=== PATIENT | female | born 1980 | race Caucasian/White ===

== ENCOUNTER 2020-11-16 06:54 | Emergency (ER) | payer MEDICAID ==
[2020-11-16] MEDS: Sodium Chloride 0.9% 10 ML Syringe FLUSH PRN (07:40)
[2020-11-16] MEDS: Sodium Chloride 0.9% 1,000 ML IV SCH (07:40)
[2020-11-16] MEDS: Ondansetron 4 MG/2 ML SDV IVPUSH STA (08:00)
[2020-11-16] MEDS: Cyclobenzaprine 10 MG Tab PO STA (08:15)
[2020-11-16] MEDS: Ketorolac 30 MG/ML SDV IVPUSH ONE (08:15)
[2020-11-16] MEDS: Morphine 2 MG/ML SYRINGE IVPUSH ONE (08:20)
--- NOTE | 2020-11-16 10:13 | CR ---
CHEST ONE VIEW INDICATION: Cough, fatigue, shortness of breath for two weeks. 30-year pack history of smoking. FINDINGS: AP portable upright view of the chest was obtained 11/16/20 - no comparisons. The heart and mediastinum are unremarkable. A minimal dextroconvex scoliosis of the upper and middle thoracic spine is noted. No consolidating pneumonia or effusion was identified. Evidence of exogenous obesity is noted. IMPRESSION: No acute process. Findings as noted above. MTDD
--- NOTE | 2020-11-16 10:36 | EDM.PDOC ---
ED HPI GENERAL MEDICAL PROBLEM - General Chief Complaint: General Stated Complaint: JOINT PAIN Time Seen by Provider: 11/16/20 07:20 Source of Information: Reports: Patient History Limitations: Reports: No Limitations - History of Present Illness INITIAL COMMENTS - FREE TEXT/NARRATIVE: Patient presented to the ED because of multiple complains. She has low back and shoulder pain for months but didn't see her doctor. The pain is shrap,7/10, wporse with movements. No recent trauma or injury . She took OTC tylenol and ibuprofen without relief. She also c/o N/V/D for 2 weeks. She was seen at [facility] 2 times and all they found was hypokalemia which was treated. There is fever, chills,.No cough or cold symptoms. No urinary s/s. - Related Data Allergies Allergy/AdvReac Type Severity Reaction Status Date / Time azithromycin Allergy Cannot Verified 11/16/20 07:13 Remember lisinopril Allergy Cannot Verified 11/16/20 07:13 Remember Home Meds: Home Meds Cyclobenzaprine [Flexeril] 10 mg PO TID PRN #30 tab 11/16/20 [Rx] Ibuprofen 800 mg PO TID PRN #30 tablet 11/16/20 [Rx] Ondansetron [Zofran ODT] 4 mg PO Q6H PRN #10 tab.dis 11/16/20 [Rx] Sulfamethoxazole/Trimethoprim [Bactrim Ds Tablet] 1 each PO BID #10 tablet 11/16/20 [Rx] Past Medical History Cardiovascular History: Reports: Hypertension Respiratory History: Reports: Other (See Below) Other Respiratory History: collapsed right lung. Psychiatric History: Reports: Anxiety - Past Surgical History HEENT Surgical History: Reports: Tonsillectomy GI Surgical History: Reports: Cholecystectomy Social & Family History - Family History Family Medical History: No Pertinent Family History - Tobacco Use Tobacco Use Status *Q: Current Every Day Tobacco User Years of Tobacco use: 20 Packs/Tins Daily: 1 - Caffeine Use Caffeine Use: Reports: Coffee ED ROS GENERAL - Review of Systems Review Of Systems: See Below Constitutional: Reports: No Symptoms HEENT: Reports: No Symptoms Respiratory: Reports: No Symptoms Cardiovascular: Reports: No Symptoms Endocrine: Reports: No Symptoms GI/Abdominal: Reports: Diarrhea, Nausea, Vomiting : Reports: No Symptoms Musculoskeletal: Reports: Neck Pain, Shoulder Pain, Back Pain Skin: Reports: No Symptoms Neurological: Reports: No Symptoms Psychiatric: Reports: Anxiety Hematologic/Lymphatic: Reports: No Symptoms ED EXAM, GENERAL - Physical Exam Exam: See Below Exam Limited By: No Limitations General Appearance: Alert, No Apparent Distress Eye Exam: Bilateral Eye: PERRL Ears: Normal External Exam, Normal Canal, Hearing Grossly Normal Nose: Normal Inspection, Normal Mucosa, No Blood Throat/Mouth: Normal Inspection, Normal Lips, Normal Teeth, Normal Oropharynx, Normal Voice Head: Atraumatic, Normocephalic Neck: Normal Inspection, Supple, Non-Tender, Full Range of Motion Respiratory/Chest: No Respiratory Distress, Lungs Clear, Normal Breath Sounds Cardiovascular: Normal Peripheral Pulses, Regular Rate, Rhythm, No Edema, No Gallop, No JVD, No Murmur, No Rub GI/Abdominal: Normal Bowel Sounds (bowel sound), Soft, Non-Tender, Other Back Exam: Normal Inspection, Full Range of Motion Extremities: Normal Inspection, Normal Range of Motion, Non-Tender Neurological: Alert, Oriented, CN II-XII Intact, Normal Cognition Course - Vital Signs Text/Narrative:: Lab/CXR result was reviewed and discussed with patient NS 1 L bolus Zofran 4 mg IV x1 Toradol 30 mg IV x1 Morphine 2 mg IV x1 Flexeril 10 mg PO x1 GI cocktail PO x1 Last Recorded V/S: Last Vital Signs Temp 36.2 C 11/16/20 07:17 Pulse 105 H 11/16/20 07:17 Resp 18 11/16/20 07:17 BP 143/94 H 11/16/20 07:17 Pulse Ox 100 11/16/20 07:17 - Orders/Labs/Meds Orders: Active Orders 24 hr Category Date Time Status OVA + PARASITE EXAM Stat Lab 11/16/20 08:14 Ordered STOOL CULTURE Stat Lab 11/16/20 08:14 Ordered Isolation [COMM] Routine Oth 11/16/20 07:17 Ordered Saline Lock Insert [OM.PC] Routine Oth 11/16/20 07:13 Ordered Labs: Laboratory Tests 11/16/20 11/16/20 11/16/20 Range/Units 07:45 07:45 07:45 WBC 8.1 (3.0-10.3) x10-3/uL RBC 4.84 (3.60-5.20) x10(6)uL Hgb 14.4 (11.4-15.5) g/dL Hct 43.6 (34.2-48.2) % MCV 90.1 (76.7-100.5) fL MCH 29.7 (23.9-33.9) pg MCHC 32.9 (31.9-34.8) g/dL RDW 12.8 (12.3-16.5) % Plt Count 282 (151-488) x10(3)uL MPV 8.3 (7.1-12.4) fL Neut % (Auto) 57.3 (30.8-76.2) % Lymph % (Auto) 30.5 (18.4-52.1) % [place] % (Auto) 7.0 (4.4-15.7) % Eos % (Auto) 4.3 (0.6-8.1) % Baso % (Auto) 0.9 (0.2-1.5) % Neut # (Auto) 4.6 (1.5-6.3) x10-3/uL Lymph # (Auto) 2.5 (1.0-4.4) x10-3/uL [place] # (Auto) 0.6 (0.3-1.0) x10-3/uL Eos # (Auto) 0.3 (0.0-0.8) x10-3/uL Baso # (Auto) 0.1 (0.0-0.1) x10-3/uL Sodium 143 (135-145) mmol/L Potassium 4.0 (3.5-5.3) mmol/L Chloride 103 (100-110) mmol/L Carbon Dioxide 31 (21-32) mmol/L BUN 17 (7-18) mg/dL Creatinine 0.9 (0.55-1.02) mg/dL Est Cr Clr Drug Dosing 74.02 mL/min Estimated GFR (MDRD) > 60 (>60) BUN/Creatinine Ratio 18.9 (9-20) Glucose 93 (80-116) mg/dL Calcium 9.4 (8.6-10.2) mg/dL Magnesium (1.8-2.5) mg/dL Total Bilirubin 0.4 (0.1-1.3) mg/dL AST 27 H (5-25) IU/L ALT 38 H (12-36) U/L Alkaline Phosphatase 70 (56-112) IU/L C-Reactive Protein (0.5-0.9) mg/dL Total Protein 7.8 (6.0-8.0) g/dL Albumin 4.0 (3.5-5.2) g/dL Globulin 3.8 g/dL Albumin/Globulin Ratio 1.1 Urine Color (YELLOW) Urine Appearance (CLEAR) Urine pH (5.0-6.5) Ur Specific [place] (1.010-1.025) Urine Protein (NEGATIVE) mg/dL Urine Glucose (UA) (NORMAL) mg/dL Urine Ketones (NEGATIVE) mg/dL Urine Occult Blood (NEGATIVE) Urine Nitrite (NEGATIVE) Urine Bilirubin (NEGATIVE) Urine Urobilinogen (NEGATIVE) mg/dL Ur Leukocyte Esterase (NEGATIVE) Urine RBC (0-5) Urine WBC (0-5) Ur Squamous Epith Cells (NS,R,O) Urine Bacteria (NS) SARS-CoV-2 RNA (MAGUI) Negative (NEGATIVE) 11/16/20 11/16/20 11/16/20 Range/Units 07:45 07:45 08:20 WBC (3.0-10.3) x10-3/uL RBC (3.60-5.20) x10(6)uL Hgb (11.4-15.5) g/dL Hct (34.2-48.2) % MCV (76.7-100.5) fL MCH (23.9-33.9) pg MCHC (31.9-34.8) g/dL RDW (12.3-16.5) % Plt Count (151-488) x10(3)uL MPV (7.1-12.4) fL Neut % (Auto) (30.8-76.2) % Lymph % (Auto) (18.4-52.1) % [place] % (Auto) (4.4-15.7) % Eos % (Auto) (0.6-8.1) % Baso % (Auto) (0.2-1.5) % Neut # (Auto) (1.5-6.3) x10-3/uL Lymph # (Auto) (1.0-4.4) x10-3/uL [place] # (Auto) (0.3-1.0) x10-3/uL Eos # (Auto) (0.0-0.8) x10-3/uL Baso # (Auto) (0.0-0.1) x10-3/uL Sodium (135-145) mmol/L Potassium (3.5-5.3) mmol/L Chloride (100-110) mmol/L Carbon Dioxide (21-32) mmol/L BUN (7-18) mg/dL Creatinine (0.55-1.02) mg/dL Est Cr Clr Drug Dosing mL/min Estimated GFR (MDRD) (>60) BUN/Creatinine Ratio (9-20) Glucose (80-116) mg/dL Calcium (8.6-10.2) mg/dL Magnesium 2.0 (1.8-2.5) mg/dL Total Bilirubin (0.1-1.3) mg/dL AST (5-25) IU/L ALT (12-36) U/L Alkaline Phosphatase (56-112) IU/L C-Reactive Protein 1.7 H (0.5-0.9) mg/dL Total Protein (6.0-8.0) g/dL Albumin (3.5-5.2) g/dL Globulin g/dL Albumin/Globulin Ratio Urine Color Yellow (YELLOW) Urine Appearance Slightly cloudy (CLEAR) Urine pH 7.0 H (5.0-6.5) Ur Specific [place] 1.015 (1.010-1.025) Urine Protein Negative (NEGATIVE) mg/dL Urine Glucose (UA) Normal (NORMAL) mg/dL Urine Ketones Negative (NEGATIVE) mg/dL Urine Occult Blood Negative (NEGATIVE) Urine Nitrite Positive H (NEGATIVE) Urine Bilirubin Negative (NEGATIVE) Urine Urobilinogen Normal (NEGATIVE) mg/dL Ur Leukocyte Esterase Negative (NEGATIVE) Urine RBC 0-5 (0-5) Urine WBC 0-5 (0-5) Ur Squamous Epith Cells Moderate H (NS,R,O) Urine Bacteria Many H (NS) SARS-CoV-2 RNA (MAGUI) (NEGATIVE) Meds: Medications Discontinued Medications Generic Name Dose Route Start Last Admin Trade Name Freq PRN Reason Stop Dose Admin Al Hydroxide/Mg Hydroxide 15 0 ml 11/16/20 10:49 11/16/20 10:53 ml/ Lidocaine HCl 15 ml PO 11/16/20 10:50 30 ml ONETIME ONE Administration Cyclobenzaprine HCl 10 mg 11/16/20 07:23 11/16/20 08:15 Cyclobenzaprine 10 Mg Tab PO 11/16/20 07:24 10 mg NOW STA Administration Sodium Chloride 1,000 mls @ 999 mls/hr 11/16/20 07:30 11/16/20 07:40 Normal Saline IV 999 mls/hr ASDIRECTED SOPHIA Administration Ketorolac Tromethamine 30 mg 11/16/20 07:19 11/16/20 08:15 Ketorolac 30 Mg/Ml Sdv IVPUSH 11/16/20 07:20 30 mg ONETIME ONE Administration Morphine Sulfate 2 mg 11/16/20 07:19 11/16/20 08:20 Morphine 2 Mg/Ml Syringe IVPUSH 11/16/20 07:20 2 mg ONETIME ONE Administration Ondansetron HCl 4 mg 11/16/20 07:30 11/16/20 08:00 Ondansetron 4 Mg/2 Ml Sdv IVPUSH 11/16/20 07:31 4 mg NOW STA Administration Sodium Chloride 10 ml 11/16/20 07:13 11/16/20 07:40 Sodium Chloride 0.9% 10 Ml Syringe FLUSH 10 ml ASDIRECTED PRN Administration Keep Vein Open Departure - Departure Time of Disposition: 10:35 Disposition: Home, Self-Care 01 Condition: Good Clinical Impression: UTI (urinary tract infection) - Discharge Information Prescriptions: Sulfamethoxazole/Trimethoprim [Bactrim Ds Tablet] 1 each PO BID #10 tablet Cyclobenzaprine [Flexeril] 10 mg PO TID PRN #30 tab PRN Reason: Spasms Ibuprofen 800 mg PO TID PRN #30 tablet PRN Reason: Pain Ondansetron [Zofran ODT] 4 mg PO Q6H PRN #10 tab.dis PRN Reason: Nausea Instructions: Viral Gastroenteritis, Adult, [id number], Urinary Tract Infection, Adult, [id number] Referrals: PCP,None [Primary Care Provider] - Forms: ED Department Discharge Additional Instructions: Please read discharge instructions on Stomach Flu(gastroenteritis) and UTI Frequent hand washing Drink 2 liters daily Imodium (over the counter) 2 tablets every 6 hours as needed for diarrhea Zofran ODT 4 mg every 4 hours as needed for nausea Bactrim DS 1 tablet twice daily for 5 days(UTI) Take ibufrofen 800 mg, tylenol 1000 mg, Flexeril 10 mg all at the same time every 8 hours for pain and spasm. Follow up as needed Sepsis Event Note (ED) - Evaluation Sepsis Screening Result: No Definite Risk - Focused Exam Vital Signs: Vital Signs Temp Pulse Resp BP Pulse Ox 11/16/20 07:17 36.2 C 105 H 18 143/94 H 100 - My Orders Last 24 Hours: My Active Orders 11/16/20 07:13 Saline Lock Insert [OM.PC] Routine 11/16/20 07:17 Isolation [COMM] Routine 11/16/20 08:14 OVA + PARASITE EXAM Stat STOOL CULTURE Stat - Assessment/Plan Last 24 Hours: My Active Orders 11/16/20 07:13 Saline Lock Insert [OM.PC] Routine 11/16/20 07:17 Isolation [COMM] Routine 11/16/20 08:14 OVA + PARASITE EXAM Stat STOOL CULTURE Stat
[2020-11-16] MEDS: Alum Hydroxide/Mag Hydroxide 15 ML, Lidocaine 2% 15 ML PO ONE ×2 (10:53)
== END 2020-11-16 11:25 | disposition home or self-care (01) ==
LOC: FB.ED 06:54
DX: N39.0 Urinary tract infection, site not specified (principal); I10 Essential (primary) hypertension; Z88.1 Allergy status to other antibiotic agents; Z88.8 Allergy status to other drugs, medicaments and biological substances; Z72.0 Tobacco use; Z20.822 Contact with and (suspected) exposure to COVID-19
CPT/HCPCS: 36415; 71045; 80053; 81001; 83735; 85025; 86140; 87086; 87088; 87186; 87635; 87804; 96374; 96375; 99283; A9270; J1885; J2270; J2405; J7030; U0002